=== PATIENT | female | born 1980 | race Two or more races ===

== ENCOUNTER 2023-10-11 20:05 | Emergency (ER) | payer MEDICAID, OTHER ==
[~2023-10-11] VITALS: Ht 154.9 cm; Wt 89.4 kg
[2023-10-12] MEDS ORDERED: CYCL-837 PO (02:15)
[2023-10-12 02:26] VITALS: BP 128/71; TEMP 99
[2023-10-12] MEDS: diphenhdrAMINE HCL 50 MG/1 ML VL IM ONE (02:26)
[2023-10-12] MEDS: KETOROLAC TROMETH 30 MG/ML 1ML VIAL IM ONE (02:26)
[2023-10-12 02:27] VITALS: PULSE 72; RESP 16; O2SAT 99
== END 2023-10-12 02:31 | disposition home or self-care (01) ==
LOC: ER 20:05
DX: G44.209 Tension-type headache, unspecified, not intractable (principal)
CPT/HCPCS: 70450; 96372; 99285; J1200; J1885

== ENCOUNTER 2025-02-22 19:15 | Emergency (ER) | payer MEDICAID, OTHER ==
[~2025-02-22] VITALS: Ht 154.9 cm; Wt 73.1 kg
[~2025-02-22 19:15] MED LIST: CYCL-837 PO
[2025-02-22] MEDS: ACETAMINOPHEN 325 MG TAB PO ONE (20:59)
[2025-02-22] MEDS: KETOROLAC TROMETH 30 MG/ML 1ML VIAL IM ONE (20:59)
--- NOTE | 2025-02-22 21:12 | DVH ---
CLINICAL INDICATION: fall inj TECHNIQUE: 2 radiographic views of the left wrist were obtained. Comparison: XY L HAND 3V XRAY on DOS: 02/22/25 FINDINGS/IMPRESSION: Bony alignment is normal There are no fractures or dislocations.
--- NOTE | 2025-02-22 21:13 | DVH ---
CLINICAL INDICATION: fall inj TECHNIQUE: 3 radiographic views of the left hand were obtained. Comparison: XY L WRIST 3+ VIEW XRAY on D OS: 02/22/25 FINDINGS/IMPRESSION: Bony alignment is normal There are no fractures or dislocations No radiopaque foreign bodies.
--- NOTE | 2025-02-22 21:16 | ED.PDOC ---
Musculoskeletal HPI Comments 44-year-old female who came to ER for fall injury. Patient was working when she accidentally slipped on water, and she fell on her outstretched left hand. Patient currently complaining of left wrist pain. Denies any other injuries. Denies any head trauma REVIEW OF SYSTEMS: General: No fever, no chills, or fatigue HEENT: No sore throat, no earache, no congestion, no neck pain. Cardiac: No chest pain. No palpitations. Lungs: No shortness of breath, no cough. GI: No nausea, no vomiting, no diarrhea, no constipation, no abdominal pain : No dysuria, frequency, or urgency. No hematuria. Musculoskeletal: (+) wrist joint pain , no joint swelling, no extremity edema. Skin: No rash, no itching. Neuro: No headache, no dizziness, no weakness EXAM: General: Awake, alert and oriented. No acute distress. Skin: Skin in warm, dry and intact. Appropriate color for ethnicity. HEENT: The head is normocephalic and atraumatic. Conjunctivae are clear without exudates or hemorrhage. Sclera is non-icteric. EOM are intact. No signs of nystagmus. Eyelids are normal in appearance without swelling or lesions. Oral mucosa is pink and moist Neck: The neck is supple with normal range of motion. No JVD. Cardiac: Heart rate and rhythm are normal. No murmurs, gallops, or rubs are auscultated. Respiratory: No signs of respiratory distress. Lung sounds are clear in all lobes bilaterally without rales, rhonchi, or wheezes. Abdominal: Abdomen is soft, non-tender without distention. Bowel sounds are present and normoactive in all four quadrants. Extremities: Upper and lower extremities are atraumatic in appearance without deformity or edema. Neurological: The patient is awake, alert and oriented to person, place, and time with normal speech. Speech is clear. There is no facial asymmetry. Psychiatric: Appropriate mood and affect. Good judgement and insight Chief Complaint: Fall Injury Time Seen by MD: 21:15 Reviewed Notes: Nurses Notes Allergies: Coded Allergies: NO KNOWN ALLERGIES (Unverified , 10/11/23) Home Meds Active Scripts Cyclobenzaprine Hcl (Cyclobenzaprine Hcl) 5 Mg Tab, 1 TAB PO TID PRN, #30 TAB Prov:LINNETTE LINARES COLUMNIST 10/12/23 Information Source: Patient Mode of Arrival: Ambulatory Location: Left Extremity Location: Wrist Timing: Hours Prehospital treatment: None Severity: Moderate Able to Move Extremity: Yes Bear Weight: Limited Pain: Moderate Mechanism: FOOSH Circumstances: Fall, Accident Onset of Symptoms: After Trauma Symptoms: Swelling, Pain Associated signs and symptoms: Wrist pain (Left) Past Medical History PAST MEDICAL HISTORY: Denies Surgical History: Denies all surgeries FLEET DISPATCH MANAGER History: No Pertinent FLEET DISPATCH MANAGER History Family History Family History: Reviewed,noncontributory to illness Social History Smoker: Non-Smoker Alcohol: Denies ETOH Use Drugs: Denies Drug Use Lives In: Home Was a procedure done? Was a procedure done?: No Differential Diagnosis EXT Differential Diagnosis: Fracture, Sprain, Dislocation, Strain X-Ray, Labs, Meds, VS Vital Signs Date Time Temp Pulse Resp B/P (MAP) Pulse Ox O2 Delivery O2 Flow Rate FiO2 02/22/25 23:43 97.8 70 16 120/77 (91) 100 97.8 02/22/25 21:09 69 16 100 Room Air 02/22/25 21:09 97.9 69 16 124/71 (88) 100 97.9 02/22/25 19:15 98.7 67 18 139/87 100 98.7 Current Medications Medications (Trade) Dose Ordered Sig/Dave Route Start Time Stop Time Status Last Admin Ketorolac Tromethamine (Toradol Injection) 30 mg ONCE ONCE IM 02/22/25 20:45 02/22/25 20:46 DC 02/22/25 20:59 Tramadol HCl (Ultram) 50 mg ONCE ONCE PO 02/22/25 20:45 02/22/25 20:46 DC 02/22/25 20:59 Acetaminophen (Tylenol Tablet) 650 mg ONCE ONCE PO 02/22/25 20:45 02/22/25 20:46 DC 02/22/25 20:59 PROCEDURE(s): LWRI - L WRIST 3+ VIEW XRAY REASON: fall inj ORDER NUMBER(s): [id number], ACCESSION NUMBER(s): [id number] CLINICAL INDICATION: fall inj TECHNIQUE: 2 radiographic views of the left wrist were obtained. Comparison: XY L HAND 3V XRAY on DOS: 02/22/25 FINDINGS/IMPRESSION: Bony alignment is normal There are no fractures or dislocations. EDURE(s): LHAN - L HAND 3V XRAY REASON: fall inj ORDER NUMBER(s): [id number], ACCESSION NUMBER(s): [id number] CLINICAL INDICATION: fall inj TECHNIQUE: 3 radiographic views of the left hand were obtained. Comparison: XY L WRIST 3+ VIEW XRAY on D OS: 02/22/25 FINDINGS/IMPRESSION: Bony alignment is normal There are no fractures or dislocations No radiopaque foreign bodies. Time of 1ST Reevaluation: 21:14 Reevaluation 1ST: Unchanged Patient Education/Counseling: Need For Follow Up Family Education/Counseling: No Family Present Departure 1 Departure Time of Disposition: 00:00 Impression: Primary Impression: Left wrist injury Additional Impression: Tenderness of anatomical snuffbox Disposition: HOME / SELF CARE / HOMELESS Condition: Stable Additional Instructions: ED DISCHARGE INSTRUCTIONS Instructions: Please read all instructions provided in this packet carefully. Although you have been discharged from the Emergency Department, this does not mean that you have a "clean bill of health". No definitive diagnosis for your symptoms has been made today. It is possible that you are in the process of developing a serious illness. This is why you must return to the ED without fail if any new or worsening symptoms (especially if your symptoms include chest pain , trouble breathing, abdominal pain, fever, headache, confusion, trouble seeing, or trouble walking) It is also very important that you see a primary care provider (PCP) within the next 5-7 days to follow up. You will need repeat x-rays of the wrist. Please wear splint until you follow up for re-evaluation If you are unable to get an appointment, return to the ED for re-evaluation. Possible Scaphoid Fracture of the Wrist: Care Instructions You may have a scaphoid fracture (also called a navicular fracture). This is a break in a small bone on the thumb side of your wrist. It can cause pain and swelling in the wrist and make it hard to move your wrist or thumb. Treatment for this type of break includes wearing an arm cast or splint and, in some cases , having surgery. Even if the first X-rays don't show a break, there may be one. So the doctor will want you to wear a splint to protect the injured wrist. It is better to do this than risk not treating a fracture and possibly delay healing. You will need a follow-up X-ray in 1 to 2 weeks. Or the doctor may order another test such as an MRI. It is important to follow the doctor's instructions, because parts of the scaphoid bone do not have a good blood supply. This can make healing slow and difficult if the bone is broken. The doctor has checked you carefully, but problems can develop later. If you notice any problems or new symptoms, get medical treatment right away. Follow-up care is a neff part of your treatment and safety. Be sure to make and go to all appointments, and call your doctor if you are having problems. It's also a good idea to know your test results and keep a list of the medicines you take. How can you care for yourself at home? Be safe with medicines. Read and follow all instructions on the label. If the doctor gave you a prescription medicine for pain, take it as prescribed. If you are not taking a prescription pain medicine, ask your doctor if you can take an [id number] medicine. Prop up your wrist on pillows when you sit or lie down in the first few days after the injury. Keep your wrist higher than the level of your heart. This will help reduce swelling. Put ice or a cold pack on your wrist for 10 to 20 minutes at a time. Try to do this every 1 to 2 hours for the next 3 days (when you are awake) or until the swelling goes down. Put a thin cloth between the ice and your skin. Follow your doctor's directions for wearing a cast or splint. You heal best when you take good care of yourself. Eat a variety of healthy foods, and don't smoke. When should you call for help? Call your doctor now or seek immediate medical care if: You have problems with your cast or splint. For example: The skin under the cast or splint is burning or stinging. The cast or splint feels too tight. There is a lot of swelling near the cast or splint. (Some swelling is normal.) You have a new fever. You have new or worse pain, swelling, or warmth in your wrist. Your fingers turn cold or change color. You have tingling, weakness, or numbness in your hand and fingers. Watch closely for changes in your health, and be sure to contact your doctor if: You have problems with your cast or splint. You do not get better as expected. Credits for Possible Scaphoid Fracture of the Wrist: Care Instructions Current as of: January 05, 2024 Author: [employer] Staff Clinical Review Board All [employer] education is reviewed by a team that includes physicians, nurses, advanced practitioners, registered dieticians, and other healthcare professionals. Comments Extensive evaluation was performed in attempt to identify or rule out: (See differential diagnosis section) The following tests were ordered, and results were reviewed by me and discussed with patient: (See diagnostic results section) The following test were independently interpreted by me: N/A I reviewed and agreed with the following test results read by other providers: N/A I reviewed the following notes from the pt's past medical encounters: N/A Additional information was gathered from interviewing the following independent historians: N/A Discussion of management or test interpretation with external physician/other qualified health lawn caretaker: N/A Addressed [ ]one or more chronic illnesses with severe exacerbation, progression, or side effects of treatment: [ ]an acute or chronic illness that poses a threat to life or bodily function: [ ] Decision regarding hospitalization or escalation of hospital level of care: Risk and benefits of admission for further treatment of patient's condition was considered. Due to patient's current clinical condition, high risk of decline and poor outcome if discharged and need for further inpatient management and monitoring, patient will be admitted to the hospital. Discussed with patient. Drug therapy requiring intensive monitoring for toxicity: N/A Parenteral controlled substances: N/A Decision regarding elective major surgery with identified patient or procedure risk factors: N/A Decision regarding emergency major surgery: N/A Decision not to resuscitate or to de-escalate care because of poor prognosis: N/A Diagnosis or treatment significantly limited by social determinants of health: N/A Decision regarding hospitalization or escalation of hospital level of care: Risks and benefits of admission for further treatment of patient's condition was considered however due to patient's stable condition patient will be discharged to follow up closely or return to care for worsening of condition or inability to follow up. Critical Care Note Critical Care Time?: No Stability Stability form required: No Heart Score Heart Score: Heart Score Response (Comments) Value History N/A 0 EKG N/A 0 Age N/A 0 Risk Factors N/A 0 Troponin N/A 0 Total 0 I personally scribed for ISRAEL GAY MD ([email or web address]) on 02/22/25 at 21:16. Electronically submitted by Elliot Bishop ([email or web address]). I personally scribed for ISRAEL GAY MD ([email or web address]) on 02/22/25 at 21:17. Electronically submitted by Elliot Bishop ([email or web address]). I personally scribed for ISRAEL GAY MD ([email or web address]) on 02/22/25 at 21:18. Electronically submitted by Elliot Bishop ([email or web address]). ISRAEL GAY MD Feb 22, 2025 21:16
[2025-02-22 23:43] VITALS: BP 120/77; PULSE 70; RESP 16; TEMP 97.8; O2SAT 100
[2025-02-23] MEDS ORDERED: HYDR-4902 PO (00:22)
== END 2025-02-23 00:18 | disposition home or self-care (01) ==
LOC: ER 19:25 → EEVIPCON 19:25 → ER 02-23 00:18
DX: S69.82XA Other specified injuries of left wrist, hand and finger(s), initial encounter (principal); W01.0XXA Fall on same level from slipping, tripping and stumbling without subsequent striking against object, initial encounter; Y93.89 Activity, other specified; Y92.89 Other specified places as the place of occurrence of the external cause; Y99.8 Other external cause status
CPT/HCPCS: 29125; 73110; 73130; 96372; 99284; J1885